=== PATIENT | male | born 1995 | race Hispanic/Latino ===

== ENCOUNTER 2018-03-05 13:50 | Emergency (ER) | payer BC ==
--- NOTE | 2018-03-05 14:20 | ED PDOC ---
HPI: SOB/CHF/COPD Time Seen by Provider: 03/05/18 14:02 Chief Complaint (Nursing): Shortness Of Breath Chief Complaint (Provider): Shortness Of Breath History Per: Patient History/Exam Limitations: no limitations Onset/Duration Of Symptoms: Days (x 3) Current Symptoms Are (Timing): Still Present Additional Complaint(s): 22 year old male with a familial history of heart attack (father) presents to the ED with chest tightness, shoulder pain and shortness of breath for the last three days. Patient describes chest discomfort as "weird" especially when he inhales. This morning he woke up and felt short of breath. His arm hurts when he lifts it. Otherwise, he denies fever, chills and cough. PMD: none provided Past Medical History Reviewed: Historical Data, Nursing Documentation, Vital Signs Vital Signs: Last Vital Signs Temp 97.0 F L 03/05/18 14:14 Pulse 53 L 03/05/18 14:56 Resp 19 03/05/18 14:24 BP 118/77 03/05/18 14:14 Pulse Ox 98 03/05/18 14:56 - Medical History PMH: No Chronic Diseases - Surgical History Surgical History: No Surg Hx - Family History Family History: States: [place] (father ) - Social History Current smoker - smoking cessation education provided: No Alcohol: Social Drugs: Cannabis (occasionally) - Allergies Allergies/Adverse Reactions: Allergies Allergy/AdvReac Type Severity Reaction Status Date / Time No Known Allergies Allergy Verified 03/05/18 14:14 Review of Systems ROS Statement: Except As Marked, All Systems Reviewed And Found Negative Cardiovascular: Positive for: Chest Pain (discomfort; "weird" ) Respiratory: Positive for: Shortness of Breath Musculoskeletal: Positive for: Shoulder Pain Physical Exam - Reviewed Nursing Documentation Reviewed: Yes Vital Signs Reviewed: Yes - Physical Exam Appears: Positive for: Non-toxic, No Acute Distress Head Exam: Positive for: ATRAUMATIC, NORMOCEPHALIC Skin: Positive for: Normal Color, Warm, Dry Eye Exam: Positive for: EOMI, Normal appearance, PERRL Neck: Positive for: Painless ROM Cardiovascular/Chest: Positive for: Regular Rate, Rhythm Respiratory: Positive for: Normal Breath Sounds Extremity: Positive for: Normal ROM (upper and lower extremities). Negative for : Deformity Neurologic/Psych: Positive for: Alert, Oriented (x3) - ECG ECG: Positive for: Interpreted By Me, Viewed By Me ECG Rhythm: Positive for: Sinus Bradycardia Rate: 53 O2 Sat by Pulse Oximetry: 98 (RA) Pulse Ox Interpretation: Normal Medical Decision Making Medical Decision Making: Time: 14:24 Initial Impression: Shortness of Breath Inital Plan: --CMP --CBC with differentials --CXR 2 views --D-dimer --Troponin Time: 15:00 --Patient signed out to Dr. Plasencia, pending reevaluation and labs. Scribe Attestation: Documented by Raisa Vivar, acting as a scribe for Devan Gregg MD Provider Scribe Attestation: All medical record entries made by the Scribe were at my direction and personally dictated by me. I have reviewed the chart and agree that the record accurately reflects my personal performance of the history, physical exam, medical decision making, and the department course for this patient. I have also personally directed, reviewed, and agree with the discharge instructions and disposition. Disposition - Patient ED Disposition Is Patient to be Admitted: Transfer of Care - Disposition Disposition: Transfer of Care Disposition Time: 15:00 Condition: FAIR Forms: [id number] (Stateless) Patient Signed Over To: Naeem Plasencia Handoff Comments: pending labs and reevaluation.
--- NOTE | 2018-03-05 15:21 | ED PDOC ---
- Laboratory Results Result Diagrams: 03/05/18 15:21 03/05/18 15:21 Interpretation Of Abn Labs: mild elevation liver enzymes - ECG ECG Rhythm: Positive for: Normal QRS, Normal ST Segment, Sinus Bradycardia O2 Sat by Pulse Oximetry: 98 (RA) Pulse Ox Interpretation: Normal - Radiology X-Ray: Interpreted by Me, Viewed By Me X-Ray Interpretation: No Acute Disease - Progress ED Course And Treament: 1520: Stable. Took over care from Dr. Gregg. Pt. here with chest pain, dyspnea. Fu on imaging and labs. 1642: Pt. states he is not having pain, but rather palpitation, like heart beat is fast. That comes and goes. Currently no pain or palpitations. Feels good currently. AAOx3. No calf pain, hormone use, or long distance travel. Fu with clinic. Is a runner and has been exercising which can correlate with the HR. Disposition Counseled Patient/Family Regarding: Studies Performed, Diagnosis, Need For Followup - Clinical Impression Clinical Impression: Palpitations, Elevated liver enzymes - POA Present On Arrival: None - Disposition Referrals: [facility] [Outside] - 03/09/18 Disposition: Routine/Home Disposition Time: 16:47 Condition: STABLE Additional Instructions: See the clinic to follow up on your elevated liver enzymes. Stop drinking alcohol. Return if not better in 3 days. Instructions: Palpitations, Liver Function Test Forms: [employer] ([employer]), [facility] ED School/Work Excuse Wells Criteria for PE - Wells Criteria for Pulmonary Embolism Clinical Signs and Symptoms of DVT: No P.E is #1 Diagnosis, or Equally Likely: No Heart Rate >100: No Immobilization at least 3 days;Surgery previous 4 weeks: No Previous, objectively diagnosed PE or DVT: No Hemoptysis: No Malignancy w/treatment within 6 months, or palliative: No Total Score: 0
[2018-03-05 15:31] LABS: BASO % 0.3 % (0.0-2.0); EOS # 0.1 K/uL (0.0-0.7); EOS % 1.3 % (0.0-4.0); HEMOGLOBIN 14.4 g/dL (12.0-18.0); LYMPH # 1.4 K/uL (1.0-4.3); LYMPH % 23.9 % (20.0-40.0); MEAN CELL VOLUME 85.3 fl (80.0-94.0); MEAN CORPUSCULAR HEMOGLOBIN 28.3 pg (27.0-31.0); MEAN CORPUSCULAR HGB CONC 33.1 g/dL (33.0-37.0); MEAN PLATELET VOLUME 8.2 fl (7.2-11.7); MONO # 0.7 K/uL (0.0-0.8); MONO % 11.3 % (0.0-10.0); NEUT # 3.7 K/uL (1.8-7.0); NEUT % 63.2 % (50.0-75.0); NRBC % 0.1 % (0.0-0.0); RBC 5.09 Mil/uL (4.40-5.90); RED CELL DISTRIBUTION WIDTH 13.8 % (11.5-14.5); WHITE BLOOD COUNT 5.9 K/uL (4.8-10.8)
[2018-03-05 15:34] LABS: ALB/GLOB RATIO 1.3 (1.0-2.1); ALBUMIN 4.5 g/dL (3.5-5.0); ALT/SGPT 189 U/L (21-72); AST/SGOT 139 U/L (17-59); BLOOD UREA NITROGEN 17 mg/dl (9-20); CALCIUM 9.3 mg/dL (8.4-10.2); GFR AFRICAN-AMERICAN > 60; GFR NON-AFRICAN AMERICAN > 60
--- NOTE | 2018-03-05 16:42 | RAD ---
HISTORY: Chest pain, shortness of breath. COMPARISON: No prior. TECHNIQUE: Chest PA and lateral FINDINGS: LUNGS: No active pulmonary disease. PLEURA: No significant pleural effusion identified. No pneumothorax apparent. CARDIOVASCULAR: Normal. OSSEOUS STRUCTURES: No significant abnormalities. VISUALIZED UPPER ABDOMEN: Normal. OTHER FINDINGS: None. IMPRESSION: No active disease. Concordant results with the preliminary interpretation rendered by the emergency department physician procedure.
[2018-03-05 17:22] VITALS: BP 107/62; PULSE 66; RESP 15; TEMP 97.8; O2SAT 100
== END 2018-03-05 17:11 | disposition home or self-care (01) ==
LOC: H.ER 13:50
DX: R00.2 Palpitations (principal); R94.5 Abnormal results of liver function studies; I25.2 Old myocardial infarction; Z82.49 Family history of ischemic heart disease and other diseases of the circulatory system